=== PATIENT | female | born 1970 | race Two or more races ===

== ENCOUNTER 2021-12-07 07:46 | Emergency (ER) | payer OTHER, BC, SELFPAY ==
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
[2021-12-07 07:57] VITALS: BP 128/85; PULSE 90; O2SAT 100
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
[2021-12-07 08:05] VITALS: BP 166/78; PULSE 96; RESP 18; TEMP 36.5; O2SAT 98; BMI 29.2
[2021-12-07] MEDS: Ibuprofen 400 MG TABLET PO (10:24)
== END 2021-12-07 10:32 | disposition home or self-care (01) ==
PROVIDERS: Emergency Provider Emergency Medicine
DX: S13.4XXA Sprain of ligaments of cervical spine, initial encounter (principal); V89.2XXA Person injured in unspecified motor-vehicle accident, traffic, initial encounter; Y93.9 Activity, unspecified; Y92.411 Interstate highway as the place of occurrence of the external cause; Y99.9 Unspecified external cause status
CPT/HCPCS: 70450; 72125; 99284